=== PATIENT | female | born 1995 | race American Indian/Alaskan Native ===

== ENCOUNTER 2018-07-01 12:43 | Emergency (ER) | payer SELFPAY ==
[2018-07-01 12:52] VITALS: BP 131/82
[2018-07-01 13:22] LABS: HCG Qualitative,Urine Negative (Negative)
[2018-07-01 13:29] LABS: Bacteria,Urine 1+ /HPF (Negative); Bilirubin,Urine NEG (Negative); Blood,Urine NEG (Negative); Color,Urine Yellow (Yellow); Mucus,Urine 3+ /HPF; Protein,Urine <15 mg/dL mg/dL (Negative)
--- NOTE | 2018-07-01 14:54 | Emergency Department Report ---
ED Back Pain/Injury HPI - General Chief Complaint: Pain General Stated Complaint: BACK PAIN (MIDDLE) Time Seen by Provider: 07/01/18 14:35 Source: patient Limitations: No Limitations - History of Present Illness Initial Comments: Patient is a 23-year-old [place] female who has neck pain approximately 3 months that lasts for about 2 weeks and then resolved but states the pain is returned. Patient states his mid back and does hurt worse when she standing and walking. Patient denies any trauma or fever neck stiffness at this time. Patient states the pain sometimes radiates up into her upper back. Patient on initial visit 3 months ago had x-ray and CT which were normal. Patient was not given MRI or or so follow-up. MD Complaint: back pain - Related Data Previous Rx's Medication Instructions Recorded Last Taken Type Ibuprofen [Motrin] 800 mg PO Q8HR PRN #20 tablet 07/01/18 Unknown Rx methOCARBAMOL [Robaxin TAB] 500 mg PO Q6H PRN #15 tablet 07/01/18 Unknown Rx traMADol [Ultram] 50 mg PO Q6HR PRN #10 tablet 07/01/18 Unknown Rx Allergies Allergy/AdvReac Type Severity Reaction Status Date / Time No Known Allergies Allergy Unverified 07/01/18 12:52 ED Review of Systems ROS: Stated complaint: BACK PAIN (MIDDLE) Other details as noted in HPI Comment: All other systems reviewed and negative ED Back Pain Physical Exam - Exam General: Vital signs noted. No distress. Alert and acting appropriately. Back/Abdomen: Yes Perithoracic Tenderness, No Abdominal Tenderness, No Perilumbar Tenderness, No Sacroiliac Tenderness, No Flank Tenderness, No Straight Leg Raise Pain Neuro: Yes Normal Sensation, Yes Normal DTR's, Yes Normal Gait, No Motor Weakness ED Course Vital Signs 07/01/18 12:48 Temperature 97.9 F Pulse Rate 89 Respiratory 16 Rate Blood Pressure 131/82 O2 Sat by Pulse 100 Oximetry ED Medical Decision Making - Medical Decision Making Patient will be referred to orthopedics and given meds for pain control Critical care attestation.: If time is entered above; I have spent that time in minutes in the direct care of this critically ill patient, excluding procedure time. ED Disposition Clinical Impression: Back pain Qualifiers: Back pain location: thoracic back pain Chronicity: acute Back pain laterality: midline Qualified Code(s): M54.6 - Pain in thoracic spine Disposition: DC-01 TO HOME OR SELFCARE Is pt being admited?: No Does the pt Need Aspirin: No Condition: Stable Instructions: Back Pain (ED) Referrals: PRIMARY CARE, [Primary Care Provider] - 3-5 Days Time of Disposition: 14:54
== END 2018-07-01 15:34 | disposition home or self-care (01) ==
LOC: ED 12:43
DX: M54.6 Pain in thoracic spine (principal)
CPT/HCPCS: 81001; 81025; 99283